=== PATIENT | female | born 1955 | race Caucasian/White ===

== ENCOUNTER 2019-03-04 15:10 | Emergency (ER) | payer OTHER ==
[2019-03-04 15:24] VITALS: TEMP 98.8; BMI 27.3
--- NOTE | 2019-03-04 15:34 | PDOC ---
Attending Attestation - Resident Resident Name: Norm Isaacs - HPI HPI: 03/04/19 17:17 pt presents to the ED complaining of tachycardia and palpitations that began acutely this afternoon. History of hyperthyroidism and anxiety. Reports feeling anxious--took xanax without relief. Denies chest pain or shortness of breath. Denies nausea, vomiting or diarrhea. Denies bleeding. Denies lightheadness or syncope. States that she occasionally gets palpitations, but that they are usually transient and not severe. Denies leg swelling or pain. Denies ETOH or chronic benzo use. Reports compliance with her PTU. 03/04/19 18:30 03/04/19 18:35 - Physicial Exam PE: 03/04/19 18:34 Agree with resident exam. PAtient is alert and oriented and in no acute distress. Appears slightly anxious. CV: RRR, tachycardic. Pulm: CTA b/l. Abdomen: soft, non tender, non distended, without guarding or rebound. Ext: no edema. - Medical Decision Making 03/04/19 18:36 Pt presents to the ED complaining of palpitations. Found to have sinus tachycardia on EKG. Initial differentia included anemia, hyperthyroidism, dehydration, infection, withdrawal, less likely PE. Tachycardia is improved with HR in the 90's after IV hydration and benzos. Labs are within normal limits. Patient reports symptomatic improvement. Given that the rest of the work up was negative and that the patient feels improved, and the tachycardia has improved, will discharge patient home with instructions to return to the ED for worsening symptoms and to follow up with her PCP on Thursday.
[2019-03-04] MEDS ORDERED: LACTATED RINGERS SOLUTION 1000 ML INFUS.BAG IV ONE (16:00)
--- NOTE | 2019-03-04 16:19 | PDOC ---
History of Present Illness - General Chief Complaint: Palpitations Stated Complaint: Tachycardia Time Seen by Provider: 03/04/19 15:32 History Source: Patient, Spouse ( present at bedside.) Exam Limitations: No Limitations - History of Present Illness Initial Comments: HPI: 63 y/o female presenting to [facility] ER complaining of rapid heart rate and palpitations for the past few hours. Denies associated chest pain or shortness of breath. Symptoms started while pt was watching television. Pt reports her heart rate was beating so fast that she was unable to manually count the rate. Her home BP cuff reported a rate in the 190s. She took half a Xanax without resolution of symptoms. She was evaluated at [facility] urgent care and referred to this department for further evaluation. Pt has a h/o of hyperthyroidism, which has been stable on PKU for the past five years. No recent change in dose. Denies recent flushing, diaphoresis, or weightloss. Medical Hx: - Hyperthyroidism - Anxiety Review of Systems: In addition to that documented in the HPI above, the additional ROS was obtained : Constitutional- Denies fevers or chills Head- Denies vision changes ENMT- Denies sore throat CV- Denies chest pain Resp- Denies SOB GI- Denies vomiting or diarrhea - Denies painful urination MSK- Denies recent trauma Skin- Denies new rashes Neuro- Denies new numbness or tingling or weakness Endocrine- Denies polyuria Heme- Denies bleeding or bruising Physical Examination: Constitutional- Well-developed, well-nourished adult female in no acute distress or obvious discomfort. Found semi-fowlers on hospital bed. Answered all questions appropriately and completely. Head- Normocephalic. No obvious external signs of trauma. Cardiovascular / Chest- Tachycardic rate with regular rhythm. No murmur, rubs, clicks, or gallops. Peripheral pulses- radial pulses full. No pretibial edema. Respiratory- Breathing unlabored. Equal chest rise and fall. Clear to auscultation bilaterally. No stridor, no wheezing, no rhonchi. Gastrointestinal- abdomen is soft, non-tender, non-distended. Neuro- Alert and oriented x4. Moving all four extremities spontaneously. Gait normal. Skin- Perry, warm, and dry. Psych- Affect- appropriate. Mood- normal. Speech was non-labored, non- pressured. MDM: *Reviewed vital signs, nursing notes, and prior visit documentation (if available). 63 y/o female presenting with tachycardia and palpitations. Afebrile. Vitals remarkable for tachycardia without hypotension. Physical exam as described above. TSH and T4 within normal limits. CBC unremarkable for anemia or leukocytes. Electrolytes within normal limits. No ischemic findings on EKG. Troponin not elevated. No PE risk factors identified. HR improved after IVFB and Ativan. On reviewing repeat 12-lead EKG, noted the calculated rate was 195 but actual ventricular rate was 100. Unsure if HR at urgent care was actually in the 190s or was misidentified on the EKG. Discussed lab results with pt. Answered all questions. Provided return precautions. Pt expressed verbal understanding and agreement with plan to discharge home with outpatient follow up. Provided copies of todays results. Encouraged immediate return if tachycardia returned. Free T3 is a send out test. Pending at time of discharge. Call back requested placed. Norm Isaacs M.D., PGY2 Emergency Medicine Resident Past History - Past Medical History Allergies/Adverse Reactions: Allergies Allergy/AdvReac Type Severity Reaction Status Date / Time Penicillins Allergy Verified 03/04/19 15:18 Home Medications: Ambulatory Orders Alprazolam [Xanax] 0.25 mg PO PRN PRN 03/04/19 Lisinopril 20 mg PO DAILY 03/04/19 COPD: No HTN: Yes Psychiatric Problems: Yes (ANXIETY) Thyroid Disease: Yes - Psycho Social/Smoking Cessation Hx Smoking History: Never smoked Have you smoked in the past 12 months: No Information on smoking cessation initiated: No Hx Alcohol Use: No Drug/Substance Use Hx: No *Physical Exam - Vital Signs Last Vital Signs Temp Pulse Resp BP Pulse Ox 98.8 F 120 H 20 167/88 99 03/04/19 15:20 03/04/19 15:20 03/04/19 15:20 03/04/19 15:20 03/04/19 15:20 Vital Signs - Vital Signs #1 Pulse Rate: 94 (@18:26) ED Treatment Course - LABORATORY CBC & Chemistry Diagram: 03/04/19 16:34 03/04/19 16:34 Discharge - Discharge Information Problems reviewed: Yes Clinical Impression/Diagnosis: Tachycardia Condition: Improved Disposition: HOME - Admission No - Follow up/Referral Referrals: Linette Rodriguez MD [Primary Care Provider] - CallBack Reminder: Free T3 - Patient Discharge Instructions Patient Printed Discharge Instructions: DI for Tachycardia Additional Instructions: You were seen today for a fast heart rate. Your rate improved after receiving IV fluid. Your labs were normal. Your EKG tricked the computer into displaying your heart rate at a much faster heart rate than was true. The symptoms may have been caused by anxiety if the rate was around 100, but if it was closer to 200 then it was likely something else. Call 911 and come back to the emergency department if the fast heart rate comes back. Follow up with your primary care doctor within the next 2-3 days. You will need to call to make an appointment. The number is included in this packet. A copy of todays results are attached to this packet. Take it to the appointment so your doctor can review them. Go to the nearest emergency department if your condition worsens or you feel like you need additional emergency evaluation. Print Language: NIGERIAN - Post Discharge Activity
[2019-03-04 16:51] LABS: BASO % 0.8 % (0-2.0); EOS % 0.6 % (0-4.5); HEMATOCRIT 40.7 % (32.4-45.2); HEMOGLOBIN 13.5 GM/dL (10.7-15.3); LYMPH % 16.6 % (8-40); MCH 30.7 pg (25.7-33.7); MCHC 33.2 g/dl (32.0-36.0); MEAN CELL VOLUME 92.3 fl (80-96); MEAN PLT VOLUME 9.5 fl (7.5-11.1); MONO % 2.7 % (3.8-10.2); NEUT % 79.3 % (42.8-82.8); PLATELET COUNT 248 K/MM3 (134-434); RBC 4.41 M/mm3 (3.60-5.2); RDW 12.7 % (11.6-15.6); WHITE BLOOD COUNT 9.6 K/mm3 (4.0-10.0)
[2019-03-04 17:21] LABS: MAGNESIUM 2.2 mg/dL (1.8-2.4); PHOSPHOROUS 3.2 mg/dL (2.5-4.9)
[2019-03-04 17:23] LABS: ALBUMIN 3.9 g/dl (3.4-5.0); BILIRUBIN,TOTAL 0.3 mg/dL (0.2-1); BLOOD UREA NITROGEN 13.4 mg/dL (7-18); CALCIUM 9.5 mg/dL (8.5-10.1); CREATININE 0.9 mg/dL (0.55-1.3); POTASSIUM 4.4 mmol/L (3.5-5.1); TOT PROT 7.7 g/dl (6.4-8.2)
[2019-03-04] MEDS ORDERED: LORazepam 2 MG/ML SDV VIAL ONE (17:33)
[2019-03-04 20:05] VITALS: BP 157/80
[2019-03-04 23:23] VITALS: PULSE 94
--- NOTE | 2019-03-05 14:53 | EKG ---
Test Reason : Blood Pressure : / mmHG Vent. Rate : 196 BPM Atrial Rate : 196 BPM P-R Int : 152 ms QRS Dur : 164 ms QT Int : 160 ms P-R-T Axes : 039 -41 000 degrees QTc Int : 289 ms SINUS TACHYCARDIA WITH FREQUENT PREMATURE VENTRICULAR COMPLEXES IN A PATTERN OF BIGEMINY LEFT AXIS DEVIATION NON-SPECIFIC INTRA-VENTRICULAR CONDUCTION BLOCK ABNORMAL ECG WHEN COMPARED WITH ECG OF 04-MAR-2019 15:18, PREMATURE VENTRICULAR COMPLEXES ARE NOW PRESENT VENT. RATE HAS INCREASED BY 85 BPM NONSPECIFIC T WAVE ABNORMALITY NOW EVIDENT IN INFERIOR LEADS NONSPECIFIC T WAVE ABNORMALITY NOW EVIDENT IN ANTEROLATERAL LEADS Confirmed by YUNG STOCK, ETHAN ([id number]) on 03/05/2019 2:53:16 PM Referred By: Confirmed By:ETHAN BARRAGAN MD
--- NOTE | 2019-03-08 11:06 | EKG ---
Test Reason : Blood Pressure : / mmHG Vent. Rate : 111 BPM Atrial Rate : 111 BPM P-R Int : 154 ms QRS Dur : 076 ms QT Int : 318 ms P-R-T Axes : 049 -42 047 degrees QTc Int : 432 ms SINUS TACHYCARDIA LEFT AXIS DEVIATION ABNORMAL ECG NO PREVIOUS ECGS AVAILABLE Confirmed by Bryant Brewster MD ([id number]) on 03/08/2019 11:06:08 AM Referred By: Confirmed By:Bryant Brewster MD
== END 2019-03-04 20:00 | disposition home or self-care (01) ==
LOC: JER 15:10
PROC: 3E033NZ Introduction of Analgesics, Hypnotics, Sedatives into Peripheral Vein, Percutaneous Approach (ICD-10-PCS; principal; 2019-03-04)
DX: R00.0 Tachycardia, unspecified (principal); R00.2 Palpitations; E05.90 Thyrotoxicosis, unspecified without thyrotoxic crisis or storm; F41.9 Anxiety disorder, unspecified; Z88.0 Allergy status to penicillin
CPT/HCPCS: 36415; 80053; 83735; 84100; 84436; 84443; 84481; 85025; 93005; 93010; 99284-25